=== PATIENT | female | born 1955 | race Caucasian/White ===

== ENCOUNTER 2021-09-18 15:51 | Outpatient (CLI) | payer MEDICARE ==
--- NOTE | 2021-09-19 11:30 | Ultrasound Report ---
PROCEDURE: Abdomen Complete INDICATIONS: LUQ PAIN TECHNIQUE: Real-time scanning was performed of the abdominal and retroperitoneal organs, with image documentatio n. COMPARISON: None. FINDINGS: Study limited due to patient scanning characteristics and inability for patient to perform adequate breath-hold. Liver: The liver demonstrates diffusely increased echotexture without focal abnormalities which is c onsistent with chronic hepatocellular disease/hepatic steatosis. Gallbladder: Gallbladder is normal in appearance without gallstones, gallbladder wall thickening, or pericholecystic fluid. Negative sonographic Gaona's sign. Biliary ducts: Intrahepatic bile ducts are non-dilated. Extrahepatic bile duct caliber measures 4 m m. Normal is 6-7 mm or less in diameter, or 10 mm or less post-cholecystectomy. Pancreas: Visualized portions of the pancreas demonstrate coarse and echogenic echotexture. Spleen: Spleen is normal in size and diffusely coarse in echotexture. Kidneys: Kidneys are normal in size and echotexture. Right kidney measures 9.9 cm long; left kidney measures 8.9 cm long. No hydronephrosis or nephrolithiasis. No solid masses. Small 1.4 cm cortica l cyst in the left kidney. Aorta: Visualized aorta is normal in caliber at less than 3 cm. Iliacs: Proximal common iliac arteries were not visualized secondary to bowel gas. IVC: Intrahepatic inferior vena cava is patent. Miscellaneous: No free abdominal fluid. IMPRESSION: 1. Findings compatible with diffuse hepatic steatosis versus sequela of chronic hepatocellular diseas e. 2. Nonspecific coarse echotexture of the pancreas and spleen. Otherwise, no focal abnormalities ident ified within the pancreas or spleen. No splenomegaly. 3. Incidental note of 1.4 cm left cortical renal cyst. Reviewed by: Galileo Kmi MD on 09/19/2021 11:29 AM PST Approved by: Galileo Kim MD on 09/19/2021 11:29 AM PST Station ID: [id number]
== END 2021-09-18 15:52 | disposition home or self-care (01) ==
LOC: DI 15:51
PROVIDERS: ATTEND Internal Medicine
DX: R10.12 Left upper quadrant pain (principal)

== ENCOUNTER 2022-11-16 00:27 | Outpatient (CLI) | payer MEDICARE | END 2022-11-16 21:23 | disposition EMS.NT | LOC: EMS 00:27 | DX: E11.649 Type 2 diabetes mellitus with hypoglycemia without coma (principal) ==

== ENCOUNTER 2023-11-10 19:11 | Emergency (ER) | payer MEDICARE ==
[2023-11-10 19:57] LABS: BASOPHILS % (AUTO) 0.5 %; EOSINOPHILS # (AUTO) 0.1 10^3/uL (0.0-0.7); EOSINOPHILS % (AUTO) 1.3 %; HCT - HEMATOCRIT 41.1 % (37.0-47.0); HGB - HEMOGLOBIN 12.9 g/dL (12.0-16.0); LYMPHOCYTES # (AUTO) 1.9 10^3/uL (1.5-3.5); LYMPHOCYTES % (AUTO) 22.1 %; MEAN CORPUSCULAR HEMOGLOBIN 27.6 pg (27.0-31.0); MEAN CORPUSCULAR HGB CONC 31.4 g/dL (32.0-36.0); MEAN PLATELET VOLUME 8.3 fL (7.9-10.8); MONOCYTES # (AUTO) 0.9 10^3/uL (0.0-1.0); MONOCYTES % (AUTO) 9.9 %; NEUTROPHILS # (AUTO) 5.7 10^3/uL (1.5-6.6); PLT - PLATELET COUNT 410 10^3/uL (130-450); RED BLOOD COUNT 4.67 10^6/uL (4.20-5.40); WHITE BLOOD COUNT 8.7 x10^3/uL (4.8-10.8)
[2023-11-10 20:18] LABS: ALBUMIN 3.7 g/dL (3.2-5.5); ALBUMIN/GLOBULIN RATIO 0.9 (1.0-2.2); BILIRUBIN,TOTAL 0.4 mg/dL (0.2-1.0); CALCIUM 9.9 mg/dL (8.5-10.3); CREATININE 2.2 mg/dL (0.6-1.3); POTASSIUM 4.8 mmol/L (3.5-4.5); TOTAL PROTEIN 7.7 g/dL (6.4-8.9)
[2023-11-10] MEDS ORDERED: SODIUM CHLORIDE 0.9% 1,000 ML IV STA ×2 (20:21→21:57)
--- NOTE | 2023-11-10 20:23 | ED Physician Documentation ---
PD HPI ABD PAIN - Stated complaint Stated Complaint: RT SIDE ABD PX - Chief complaint Chief Complaint: Abd Pain - History obtained from History obtained from: Patient, Family (brother) - History of Present Illness Timing - onset: How many days ago (5) Timing - duration: Days (5) Timing - details: Abrupt onset, Still present, Waxing and waning Quality: Sharp, Pain Location: RUQ Radiation: Chest Improved by: Laying still Worsened by: Position, Palpation Associated symptoms: No: Nausea, Vomiting Similar symptoms before: Diagnosis (gall bladder disease) Recently seen: Not recently seen - Additional information Additional information: 68-year-old Edie Tavarez is a developmentally delayed female who is accom panied today by her brother who fully assists with history. Today she has been into the clinic for some right upper quadrant pain that has she has had for the past 5 days. Her brother indicates that he takes care of her in his home and she has come into his room with pain in her right side that is periodically bad enough that she is asking for help. She was evaluated in clinic today and sent to the emergency department for evaluation of possible gallbladder disease. The patient has not had vomiting. She has had similar pain on either side of her chest previously.She had a trach placed when she had influenza and required prolonged mechanical ventilation. She has had a problem with tracheitis previously and her trach tube has been removed and is slowly healing. She is able to talk if she places her finger over the residual trach hole. She is now breathing through her mouth and nose and makes a fair amount of noise when she does that. Review of Systems Constitutional: denies: Fever Eyes: denies: Decreased vision Ears: denies: Ear pain Nose: denies: Congestion Throat: denies: Sore throat Cardiac: denies: Chest pain / pressure, Palpitations Respiratory: denies: Dyspnea, Cough GI: reports: Abdominal Pain. denies: Vomiting, Constipation, Diarrhea : denies: Dysuria PD PAST MEDICAL HISTORY - Past Medical History Past Medical History: Yes Cardiovascular: None Neuro: None Endocrine/Autoimmune: Type 2 diabetes GI: None [employer]: None : None HEENT: None Psych: None Musculoskeletal: None Derm: None - Past Surgical History Past Surgical History: No - Allergies Allergies/Adverse Reactions: Allergies Allergy/AdvReac Type Severity Reaction Status Date / Time Penicillins Allergy Unknown Verified 01/22/24 19:19 - Social History Does the pt smoke?: No Smoking Status: Never smoker Does the pt drink ETOH?: No Does the pt have substance abuse?: No - Immunizations Immunizations are current?: Yes PD ED PE NORMAL - Vitals Vital signs reviewed: Yes (hypertensive mild systolic ) - General General: No acute distress, Well developed/nourished - HEENT HEENT: Atraumatic, PERRL, EOMI - Neck Neck: Supple, no meningeal sign, No bony TTP, Other (There is a hole in the center of the prior trach site without signs of inflamation of tenderness. ) - Cardiac Cardiac: RRR, No murmur - Respiratory Respiratory: No respiratory distress, Clear bilaterally - Abdomen Abdomen: Normal bowel sounds, Soft, Non distended, No organomegaly, Other (There is tenderness to the RUQ laterally without gaurding There is tenderness to the ribs and this reproduces the symptoms the patient is expreincing. ) - Back Back: No CVA TTP, No spinal TTP - Derm Derm: Normal color, Warm and dry, No rash - Extremities Extremities: No deformity, No edema - Neuro Neuro: test and turn up technician 2-12 intact, No motor deficit, No sensory deficit, Normal speech Eye Opening: Spontaneous Motor: Obeys Commands Verbal: Oriented GCS Score: 15 - Psych Psych: Normal mood, Normal affect Results - Vitals Vitals: Vital Signs - 24 hr 11/10/23 11/10/23 11/10/23 19:20 21:22 23:00 Temperature 36.8 C Heart Rate 100 92 64 Respiratory 16 14 13 Rate Blood Pressure 160/62 H 142/86 H 161/80 H O2 Saturation 96 96 97 Oxygen O2 Source Room air - Labs Labs: Laboratory Tests 11/10/23 11/10/23 11/10/23 19:48 19:48 21:45 WBC 8.7 RBC 4.67 Hgb 12.9 Hct 41.1 MCV 88.0 MCH 27.6 MCHC 31.4 L RDW 13.0 Plt Count 410 MPV 8.3 Neut # (Auto) 5.7 Lymph # (Auto) 1.9 [place] # (Auto) 0.9 Eos # (Auto) 0.1 Baso # (Auto) 0.0 Absolute Nucleated RBC 0.00 Nucleated RBC % 0.0 Sodium 136 Potassium 4.8 H Chloride 100 L Carbon Dioxide 27 Anion Gap 9.0 BUN 62 H Creatinine 2.2 H Estimated GFR (MDRD) 22 L Glucose 113 H Calcium 9.9 Total Bilirubin 0.4 AST 22 ALT 13 Alkaline Phosphatase 53 Total Protein 7.7 Albumin 3.7 Globulin 4.0 Albumin/Globulin Ratio 0.9 L Lipase 68 Urine Color YELLOW Urine Clarity HAZY Urine pH 5.5 Ur Specific [place] >=1.030 H Urine Protein >=300 H Urine Glucose (UA) 100 H Urine Ketones NEGATIVE Urine Occult Blood SMALL H Urine Nitrite NEGATIVE Urine Bilirubin NEGATIVE Urine Urobilinogen 0.2 (NORMAL) Ur Leukocyte Esterase NEGATIVE Urine RBC 6-10 H Urine WBC 0-3 Ur Squamous Epith Cells MOD Squamous H Amorphous Sediment Few Urine Bacteria Few Ur Microscopic Review INDICATED Urine Culture Comments NOT INDICATED - Rads (name of study) u/s RUQ Relevant Findings:: Prelim report reviewed (Impression: Cholelithiasis. No ultrasound findings to suggest acute cholecystitis. Diffuse increased hepatic echotexture most likely secondary to fatty infiltrate. Other hepatocellular disease could have similar ultrasound appearance. Recommend correlation with liver functions. Examination due ), EMP independent interpretation of test, See rad report chest Relevant Findings:: Prelim report reviewed (Impression: No acute cardiopulmonary disease. COPD.), EMP independent interpretation of test Procedures - IVC sono (time) 2019 Bedside IVC sono: IVC measures (cm) (0.8), IVC collapsed c insp (cm) (complete), Significant dehydration (est 2+ liter deficit) PD Medical Decision Making - ED course Complexity details: reviewed old records, reviewed results, re-evaluated patient, considered differential, d/w patient, d/w family Reviewed Lab Results: We reviewed a complete blood count showing a normal white blood cell count normal hemoglobin hematocrit and platelets normal indices chemistries showed an elevated potassium at 4.8. BUN is elevated at 62 creatinine elevated at 2.2 and these values have no prior comparisons. My interpretation of these values is this is consistent with the level of dehydration the patient has on examination today. This is further corroborated with a urine specific gravity of greater than 1.030. The normal white blood cell count and normal liver functions do not support a diagnosis of cholecystitis.This is further corroborated by the ultrasound exam that also does not demonstrate evidence of cholecystitis. ED course: Edie Aguirre presented to the emergency department with right upper quadrant pain and concern for gallbladder disease. She does have gallstones there is no tenderness to the gallbladder itself and there is no evidence of cholecystitis. I found the patient was tender to her ribs on the right side and we administered dexamethasone and Toradol with resolution of her pain. We found she was significantly dehydrated on interrogation of the IVC with POCUS and administered saline as well. She felt much improved following hydration. I discussed with her and her brother the hydration and its importance both of them appeared to understand this well. The patient herself described drinking lots of extra fluids previously and now having a difficult time keeping up with drinking any water.She states she does not have the urge for thirst that she used to.I suspect the chest wall tenderness is related to chest wall fatigue and this related to the patient's change in breathing from breathing through her trach stoma to breathing through her mouth and nose. When I relayed this to the patient's brother he indicates the patient has had similar pains to both sides intermittently. Departure - Departure Disposition: 01 Home, Self Care Clinical Impression: Chest wall pain, Dehydration Cholelithiasis Qualifiers: Cholelithiasis location: gallbladder Cholecystitis presence: without cholecystitis Biliary obstruction: with biliary obstruction Qualified Code(s): K80.21 - Calculus of gallbladder without cholecystitis with obstruction Condition: Stable Instructions: Gallstones, ED Strain Chest Wall, ED Dehydration Follow-Up: Bret Batres MD [Primary Care Provider] - Cathy Mcrae MD [Provider Admit Priv/Credential] - Comments: Edie, today it looks like the pain you are having in your right side is related to your chest wall. This is usually related to a strain and the medication of choice for this is some ibuprofen. There is evidence of gallstones in your gallbladder but today this does not appear to be the cause of your pain. A follow-up with the surgeon is indicated. Of the things that we found today the 1 thing that was most profound was your level of dehydration. The recommendation is to drink 2 quarts of fluid daily. Discharge Date/Time: 11/11/23 00:25
[2023-11-10 21:52] LABS: BILIRUBIN,URINE NEGATIVE (NEGATIVE); GLUCOSE, URINE (UA) 100 mg/dL (NEGATIVE); KETONES,URINE (UA) NEGATIVE (NEGATIVE); LEUKOCYTE ESTERASE, URINE NEGATIVE (NEGATIVE); NITRITE,URINE NEGATIVE (NEGATIVE); OCCULT BLOOD,URINE SMALL (NEGATIVE); PH,URINE 5.5 PH (5.0-7.5); PROTEIN,URINE >=300 mg/dL (NEGATIVE); UROBILINOGEN,URINE 0.2 (NORMAL) E.U./dL (NORMAL)
[2023-11-10 21:54] LABS: CLARITY,URINE HAZY (CLEAR)
[2023-11-10] MEDS ORDERED: KETOROLAC 30 MG/ML VIAL IVP STA (21:57)
[2023-11-10 22:07] LABS: AMORPHOUS SEDIMENT,UR Few /LPF; BACTERIA,URINE Few /HPF (None Seen); SQUAMOUS EPITHELIAL CELL,UR MOD Squamous (<= Few); WBC,URINE 0-3 /HPF (0-5)
--- NOTE | 2023-11-10 22:12 | Ultrasound Report ---
PROCEDURE: Abdomen Limited INDICATIONS: RUQ pain TECHNIQUE: Real-time focused scanning was performed of the abdomen, with image documentation. COMPARISONS: Ultrasound abdomen, 09/18/2021. FINDINGS: Limited examination due to patient movement and increased bowel gas. Liver: Liver is normal in size and demonstrates diffuse increased echotexture. Gallbladder: There are multiple gallstones. No gallbladder wall thickening or pericholecystic fluid c ollection. No sonographic Gaona sign.. Biliary ducts: Intrahepatic bile ducts are non-dilated. Extrahepatic bile duct caliber measures 5 m m. Normal is 6-7 mm or less in diameter, or 10 mm or less post-cholecystectomy. Pancreas: Visualized portions of the pancreas are sonographically normal. Right kidney: Normal in size and echotexture. Right kidney measures 10 cm long. No hydronephrosis or nephrolithiasis. No solid masses. No complex renal cystic lesions which require follow-up. Miscellaneous: No free abdominal fluid. IMPRESSION: 1. Cholelithiasis. No ultrasound findings to suggest acute cholecystitis. 2. Diffuse increased hepatic echotexture most likely secondary to fatty infiltration. Other hepatocel lular disease could have a similar ultrasound appearance. Recommend correlation with liver functions. 3. Examination due to patient's movement and increased. Reviewed by: Naila Coy MD on 11/10/2023 10:11 PM PST Approved by: Naila Coy MD on 11/10/2023 10:11 PM PST Station ID: [id number]
--- NOTE | 2023-11-11 00:11 | XRAY Report ---
PROCEDURE: Chest 2V INDICATIONS: R chest wall pain TECHNIQUE: 2 views of the chest were acquired. COMPARISON: None. FINDINGS: Surgical changes and devices: None. Lungs and pleura: Hyperinflation suggesting COPD. No pleural effusions or pneumothorax. Lungs are c lear. Mediastinum: Mediastinal contours appear normal. Heart size is normal. Bones and chest wall: No suspicious bony lesions. Overlying soft tissues appear unremarkable. IMPRESSION: 1. No acute cardiopulmonary disease. 2. COPD. Reviewed by: Naila Coy MD on 11/11/2023 12:10 AM PST Approved by: Naila Coy MD on 11/11/2023 12:10 AM [facility] Station ID: [id number]
[2023-11-11 00:33] VITALS: BP 161/80; O2SAT 97
== END 2023-11-11 00:25 | disposition home or self-care (01) ==
LOC: ED 19:11
DX: K80.21 Calculus of gallbladder without cholecystitis with obstruction (principal)
CPT/HCPCS: 36415; 80053; 81001; 81003; 83690; 85025; 87086; 96361; 96374; 99284

== ENCOUNTER 2024-05-29 18:32 | Outpatient (CLI) | payer MEDICARE | END 2024-05-29 18:33 | disposition EMS.NT | LOC: EMS 18:32 | DX: I10 Essential (primary) hypertension (principal) ==

== ENCOUNTER 2024-07-09 13:32 | Outpatient (CLI) | payer MEDICARE ==
[2024-07-09 19:49] LABS: BASOPHILS % (AUTO) 0.6 %; EOSINOPHILS # (AUTO) 0.3 10^3/uL (0.0-0.7); HCT - HEMATOCRIT 37.5 % (37.0-47.0); HGB - HEMOGLOBIN 11.9 g/dL (12.0-16.0); LYMPHOCYTES % (AUTO) 31.7 %; MEAN CORPUSCULAR HEMOGLOBIN 28.5 pg (27.0-31.0); MEAN CORPUSCULAR HGB CONC 31.7 g/dL (32.0-36.0); MEAN CORPUSCULAR VOLUME 89.7 fL (81.0-99.0); MEAN PLATELET VOLUME 8.6 fL (7.9-10.8); MONOCYTES # (AUTO) 0.5 10^3/uL (0.0-1.0); MONOCYTES % (AUTO) 7.8 %; NEUTROPHILS # (AUTO) 3.5 10^3/uL (1.5-6.6); NEUTROPHILS % (AUTO) 54.7 %; PLT - PLATELET COUNT 466 10^3/uL (130-450); RED BLOOD COUNT 4.18 10^6/uL (4.20-5.40); RED CELL DISTRIBUTION WIDTH 12.6 % (12.0-15.0); WHITE BLOOD COUNT 6.4 x10^3/uL (4.8-10.8)
[2024-07-09 19:59] LABS: CREATININE,URINE 52.6 mg/dL
[2024-07-09 20:06] LABS: ALBUMIN 3.6 g/dL (3.2-5.5); ALBUMIN/GLOBULIN RATIO 1.1 (1.0-2.2); BILIRUBIN,TOTAL 0.4 mg/dL (0.2-1.0); CALCIUM 9.5 mg/dL (8.5-10.3); POTASSIUM 5.7 mmol/L (3.5-4.5); TOTAL PROTEIN 6.9 g/dL (6.4-8.9)
[2024-07-09 20:21] LABS: MICROALBUMIN,URINE > 225.0 mg/dL
[2024-07-09 21:32] LABS: ESTIMATED AVERAGE GLUCOSE 151 mg/dL (70-100); HEMOGLOBIN A1c% 6.9 % (4.27-6.07)
== END 2024-07-09 13:33 | disposition home or self-care (01) ==
LOC: LAB.S 13:32
PROVIDERS: ATTEND Internal Medicine
DX: E11.65 Type 2 diabetes mellitus with hyperglycemia (principal)
CPT/HCPCS: 36415; 80053; 82043; 82570; 83036; 85025